=== PATIENT | male | born 1985 | race Caucasian/White ===

== ENCOUNTER → 2018-06-17 | Outpatient (CLI) | payer BC ==
[~2018-06-17] MED LIST: FLUT16SP19 NS; NAPR-1043 PO; OXYM-1 ENA
== END ==
LOC: AUD 11:27
PROVIDERS: ATTEND Otolaryngology
DX: H93.12 Tinnitus, left ear (principal); H65.21 Chronic serous otitis media, right ear
CPT/HCPCS: 92557; 92570

== ENCOUNTER → 2019-02-05 | Outpatient (CLI) | payer BC ==
[~2019-02-05] MED LIST changes: +CLIN300C99 PO; +DOXY-228 PO; +GADOBENATE 529MG/1ML 15ML VIAL IVP ONE; +METH4TAB66 PO
--- NOTE | 2019-02-05 13:50 | RADIOLOGY IMAGING REPORT ---
FACILITY: [facility] PATIENT NAME: Sea Gonzalez : 1985 MR: [id number] V: [id number] EXAM DATE: ORDERING PHYSICIAN: JOSEPH PENA TECHNOLOGIST: [place] [facility] [place] Patient: Sea Gonzalez : 1985 Visit/Account:[id number] Date of Sevice: 02/05/2019 Examination: MR brain without and with contrast History: Migraines Comparison: Brain MR November 24, 2015 Technique: Multiplane MR imaging was performed through the brain without and with contrast. 15 cc IV multihance was administered. Findings: Ventricles: Normal Midline shift: None Extraxial fluid: None Midline craniocervical structures: Normal Parenchyma: Normal Enhancement: No pathologic enhancement Vascular flow voids: A small vein in the left parietal region is unchanged comparing axial T2 acquisi tions, image 18. This vein is hyperintense on current T1 acquisition and does not definitively hyper intense on the prior T1 acquisition. There is diffusion bright signal within this vein which is new compared to prior. No apparent filling defect seen in this vein on the postcontrast acquisition. Orbits and paranasal sinuses: Bilateral maxillary sinus mucous retention cysts as before. A subcenti meter left maxillary sinus mucous retention cyst is new, axial T2 image one. A medial left maxillary sinus mucous retention cyst has decreased in size. A mucous retention cyst are otherwise unchanged. Other: No significant additional finding. Impression: 1. Nonspecific new hyperintense T1 signal and diffusion bright signal within a left parietal region vein which is otherwise unchanged. No apparent filling defect within this vein on the postcontrast a cquisition. The high T1 signal/diffusion bright signal is favored to represent a flow related likely normal finding. A thrombosed cortical vein is felt less likely however cannot be entirely excluded given the constellation of findings. Head CT venogram may be warranted to exclude a thrombosed cortical vein. 2. Bilateral maxillary sinus mucous retention cysts as before, see comments above. 3. Otherwise unremarkable brain MR without and with contrast. Report Dictated By: Lukas Aranda MD at 02/05/2019 1:16 PM Report E-Signed By: Lukas Aranda MD at 02/05/2019 1:43 PM [id number]
== END ==
LOC: MRI 02:14
PROVIDERS: ATTEND Family Medicine
DX: G43.109 Migraine with aura, not intractable, without status migrainosus (principal); J34.1 Cyst and mucocele of nose and nasal sinus
CPT/HCPCS: 70553; A9577

== ENCOUNTER → 2019-02-09 | Outpatient (CLI) | payer BC ==
[~2019-02-09] MED LIST changes: -GADOBENATE 529MG/1ML 15ML VIAL IVP ONE; +IOPAMIDOL 76% 100 ML INFUS BTL 100 ML ONE; +NS(*) 0.9% 50 ML BAG 50 ML ONE
--- NOTE | 2019-02-09 08:56 | RADIOLOGY IMAGING REPORT ---
FACILITY: [facility] - [place] PATIENT NAME: Chris Gonzalez : 1985 MR: [id number] V: [id number] EXAM DATE: ORDERING PHYSICIAN: JOSEPH PENA TECHNOLOGIST: Location: [facility] - [place] Patient: Crhis Gonzalez : 1985 Visit/Account:[id number] Date of Sevice: 02/09/2019 CT BRAIN WITH AND WITHOUT COMPARISONS: Brain MRI with and without contrast dated November 24, 2015 ADDITIONAL PERTINENT HISTORY: Migraine headaches TECHNIQUE: Multiple axial images were obtained from the skull base to the vertex before and after th e IV administration of contrast. One of the following dose optimization techniques was utilized in t he performance of this exam: Automated exposure control; adjustment of the mA and/or kV according to the patient's size; or use of an iterative reconstruction technique. Specific details can be refere nced in the facility's radiology CT exam operational policy. CONTRAST: 75 ml of [id number] FINDINGS: Midline shift: Negative Ventricles: Negative Brain parenchyma: Negative Extra-axial spaces: Negative Pathologic enhancement: Negative Intracranial vasculature: Negative Osseous structures: Negative Paranasal sinuses and mastoid air cells: Moderate sized mucus retention cysts involving the right max illary sinus. Moderate lobular mucosal thickening involving the left maxillary sinus. Surrounding soft tissues and orbits: Negative IMPRESSION: 1. No evidence of acute intracranial pathology. 2. Underlying paranasal sinus disease. Report Dictated By: Hilton Bellamy MD at 02/09/2019 8:43 AM Report E-Signed By: Hilton Bellamy MD at 02/09/2019 8:47 AM WSN:[id number]
== END ==
LOC: CT 00:32
PROVIDERS: ATTEND Family Medicine
DX: J32.4 Chronic pansinusitis (principal)
CPT/HCPCS: 70470; J7050; Q9967